=== PATIENT | female | born 1985 | race Caucasian/White ===

== ENCOUNTER 2022-03-08 01:18 | Inpatient (IN) | payer OTHER, SELFPAY ==
--- NOTE | ~2022-03-08 | CT_ITS ---
EXAMINATION: CT ABDOMEN AND PELVIS WITHOUT CONTRAST CLINICAL INFORMATION: Elevated LFTs, lipase, abdominal pain, vomiting COMPARISON: None TECHNIQUE: Multidetector volumetric imaging was performed from the superior aspect of the liver through the pubic symphysis. Sagittal and coronal reformatted images were obtained on the technologist's workstation. This CT examination was performed using dose optimization techniques as appropriate, variously including the following: *Automated exposure control *Adjustment of mA and/or kV according to patient size (this includes techniques or standardized protocols for targeted exams where dose is matched to indication/reason for exam; i.e. extremities or head) *Use of iterative reconstruction technique DLP: 461 mGy-cm FINDINGS: LUNG BASES: The visualized lung bases are unremarkable. LIVER, GALLBLADDER, AND BILIARY TREE: The liver is normal in size, shape, and attenuation. No focal hepatic lesion or significant biliary ductal dilatation is identified. The gallbladder is contracted and contains multiple gallstones. Tiny stones are suspected in the distal common bile duct. PANCREAS: No significant peripancreatic stranding or focal fluid collection. SPLEEN: Unremarkable. ADRENAL GLANDS: Unremarkable. KIDNEYS AND URETERS: The kidneys are normal in size, shape, and attenuation. No hydronephrosis, hydroureter, or calculi seen. No perinephric stranding. BLADDER: Unremarkable. GASTROINTESTINAL TRACT: No evidence of bowel obstruction. Colon is diffusely collapsed which limits evaluation for wall thickening. The appendix is unremarkable. No free fluid or free air is seen. ABDOMINAL WALL: No significant hernia is appreciated. LYMPH NODES: No lymphadenopathy is seen, though assessment is limited in the absence of intravenous contrast. VASCULAR: Unremarkable. PELVIC VISCERA: IUD is present in the uterus. OSSEOUS STRUCTURES: Mild scattered degenerative endplate changes in the spine. CT/CT abdomen pelvis wo con IMPRESSION: 1. Cholelithiasis within a contracted gallbladder. Distal choledocholithiasis is also suspected, and this may be further evaluated with MRCP or ERCP. 2. No significant peripancreatic inflammatory change.
--- NOTE | ~2022-03-08 | MR_ITS ---
EXAMINATION: MR ABDOMEN WITHOUT CONTRAST CLINICAL INFORMATION: Abdominal pain. Abnormal liver function tests. COMPARISON: Previous CT of the abdomen and pelvis from earlier the same day TECHNIQUE: MR abdomen is performed without gadolinium contrast. MRCP sequences were also performed. FINDINGS: LUNG BASES: The visualized lung bases are unremarkable. LIVER, GALLBLADDER, AND BILIARY TREE: The liver is normal in size, smooth in contour, and normal in signal. No focal hepatic lesion.. The gallbladder is not well visualized. There is no intra or extrahepatic biliary duct dilatation. The common bile duct is upper normal in size measuring 7 mm. There are low signal filling defects in the distal common bile duct suggestive of small stones. PANCREAS: Unremarkable. SPLEEN: Unremarkable. ADRENAL GLANDS: Unremarkable. KIDNEYS AND URETERS: The kidneys are normal in size and shape. No hydronephrosis. No perinephric stranding. GASTROINTESTINAL TRACT: No bowel obstruction. No ascites or fluid collection. ABDOMINAL WALL: No significant hernia is appreciated. LYMPH NODES: No lymphadenopathy. VASCULAR: Unremarkable. OSSEOUS STRUCTURES: Marrow signal normal. MR/MR MRCP IMPRESSION: Normal caliber intrahepatic extrahepatic bile ducts. Small distal common bile duct stones. Gallbladder not well visualized.
[2022-03-08 01:31] VITALS: BP 106/63; PULSE 71; RESP 26; TEMP 36.4; O2SAT 96; BMI 25.7
[2022-03-08] MEDS: 0.9 % Sodium Chloride 1,000 ML 999 ML IVCONT (01:43)
[2022-03-08] MEDS: ondansetron HCL 4 MG/2 ML VIAL IVPUSH ×3 (01:43→21:05)
[2022-03-08 01:47] LABS: MANUAL DIFF FLAG NO
[2022-03-08 01:48] LABS: Basophils Percent Auto 0.2 % (0-2); Eosinophils Percent Auto 0.1 % (0-4); Hematocrit 45.5 % (37.0-47.0); Hemoglobin 16.3 g/dl (12.0-16.0); Imm Gran Abs Auto 0.07 X10*3/uL (0.00-0.03); Imm Gran Pct Auto 0.5 % (0.0-0.4); Lymphocytes Percent Auto 6.8 % (20-40); Mean Corpuscular HGB Conc 35.8 g/dl (31.0-35.0); Mean Corpuscular Volume 89.2 fL (80.0-98.0); Monocytes Absolute Auto 0.7 X10*3/uL (0.1-1.2); Monocytes Percent Auto 4.5 % (2-11); Neutrophils Absolute Auto 13.3 x10*3/uL (2.0-8.3); Neutrophils Percent Auto 87.9 % (45-73); Platelet Count 285 X10*3/uL (160-400); White Blood Count 15.1 X10*3/uL (4.8-10.8)
--- NOTE | 2022-03-08 01:49 | ED.NAVMDI ---
HPI - Nausea/Vomiting/Diarrhea General Chief complaint: Abdominal Pain Stated complaint: food poisoning? vomiting x6 hours Time Seen by Provider: 03/08/22 01:21 Source: patient Mode of arrival: ambulatory Limitations: no limitations History of Present Illness HPI Narrative: Patient comes to the emergency room complaining of multiple episodes of nausea and vomiting, 1 episode of diarrhea. 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 Today, patient ate plenty [place], shortly after she started feeling nauseous and started vomiting. Patient did not pass out. Patient was hoping that the vomiting would subside by itself but it did not. Patient denies fever or chills, no URI or UTI symptoms, no blood in the vomit/stool. Patient states that she has intermittent abdominal cramping, after vomiting, she has no abdominal pain, patient states that she vomited prior to coming to the main ED and at this time she feels fairly well. However, the nausea started to build up again. Related Data Allergies Allergy/AdvReac Type Severity Reaction Status Date / Time No Known Allergies Allergy Verified 03/08/22 01:36 Review of Systems Review of Systems: Constitutional : No Weight loss, No Fever, No Chills, No Night Sweats, No Fatigue, No Malaise ENT/Mouth : No Hearing loss, No Ear Pain, No Nasal Congestion, No Sinus Pain, No Hoarseness, No sore throat, No Rhinorrhea, No Swallowing Difficulty Eyes: No Eye Pain, No Swelling, No Redness, No Foreign Body, No Discharge, No Vision Changes Cardiovascular : No Chest Pain, No SOB, No Dyspnea on Exertion, No Orthopnea, No Edema, No Palpitations Respiratory : No Cough, No Sputum, No Wheezing, No Smoke Exposure, No Dyspnea Gastrointestinal : Complaining of nausea, vomiting, 1 episode of diarrhea No Constipation, complaining of 1 episode of abdominal cramping, intermittent Genitourinary : no irregular bleeding, No Dysuria, No Urinary Frequency, No Hematuria, No Urinary Incontinence, No Urgency, No Flank Pain, No Urinary Flow Changes, No Hesitancy Musculoskeletal : No joint pain, No Myalgias, No Joint Swelling Skin : No Skin Lesions, No rash Neuro : No Weakness, No Numbness, No Paresthesias, No Loss of Consciousness, No Dizziness, No Headache Psych : No Anxiety/Panic, No Depression, No SI/HI/AH/VH, No Social Issues, Heme/Lymph: No Bruising, No Bleeding,No Lymphadenopathy Endocrine : No Polyuria, No Polydipsia, No Temperature Intolerance [facility] Social History Social History Advance Directives: No Advance Directives Information Provided: Yes Physical Exam Vital Signs: Vital Signs: Last Vital Signs Temp 97.6 F 03/08/22 01:31 Pulse 71 03/08/22 01:31 Resp 26 H 03/08/22 01:31 BP 106/63 03/08/22 01:31 Pulse Ox 96 03/08/22 01:31 O2 Del Method 03/08/22 01:31 BMI result Body Mass Index 25.7 Const: Other: Appearance: Alert. Oriented X3. No acute distress. Eyes: Pupils equal, round and reactive to light. ENT: Pharynx normal. Neck: Normal inspection. Neck supple. No lymph nodes noted. No crepitus CVS: Normal heart rate and rhythm. Pulses normal. Normal S1 and S2 Respiratory: No respiratory distress. Breath sounds normal. No Wheezing. No rales Abdomen: Soft and nontender. No rigidity. No distention. Skin: Skin warm , mildly diaphoretic. Normal skin color. Normal skin turgor. Extremities: No lower extremity edema. No Lacerations. No Rash Neuro: Oriented X 3. No motor deficit. No sensory deficit. Moving all extremities. No slurred speech. CN 2 through 12 grossly intact Psych: calm, cooperative, normal affect Course Course Course Narrative: Patient is receiving IV fluid and Zofran. Follow labs pending. I discussed the labs and CT scan with Dr. Flaherty, patient will be admitted, patient may need ERCP versus MRCP. Patient is receiving IV Zosyn. Lactic acid and blood cultures are pending, at this time, Sepsis not suspected. MDM - Nausea/Vomiting/Diarrhea Lab Data Result diagrams: 03/08/22 01:43 03/08/22 01:43 Labs: Lab Results 03/08/22 03/08/22 Range/Units 01:43 01:43 WBC 15.1 H (4.8-10.8) X10*3/uL RBC 5.10 (4.20-5.50) X10*6/uL Hgb 16.3 H (12.0-16.0) g/dl Hct 45.5 (37.0-47.0) % MCV 89.2 (80.0-98.0) fL MCH 32.0 (27.0-33.0) pg MCHC 35.8 H (31.0-35.0) g/dl RDW 12.0 (11.0-16.0) % Plt Count 285 (160-400) X10*3/uL MPV 10.0 (9.4-12.3) fL Immature Gran % (Auto) 0.5 H (0.0-0.4) % Neut % (Auto) 87.9 H (45-73) % Lymph % (Auto) 6.8 L (20-40) % [place] % (Auto) 4.5 (2-11) % Eos % (Auto) 0.1 (0-4) % Baso % (Auto) 0.2 (0-2) % Lymph # (Auto) 1.0 L (1.2-4.9) X10*3/uL [place] # (Auto) 0.7 (0.1-1.2) X10*3/uL Eos # (Auto) 0.0 (0.0-0.4) X10*3/uL Baso # (Auto) 0.0 (0.0-0.2) X10*3/uL Abs Immat Gran (auto) 0.07 H (0.00-0.03) X10*3/uL Absolute Neuts (auto) 13.3 H (2.0-8.3) x10*3/uL Absolute Nucleated RBC 0.000 (0.0-0.012) X10*3/uL Nucleated RBC % (auto) 0.0 (0.0-0.2) /100WBC Sodium 137 (135-145) mmol/L Potassium 3.7 (3.3-5.1) mmol/L Chloride 105 (96-108) mmol/L Carbon Dioxide 14 L (22-29) mmol/L Anion Gap 22 H (12-20) BUN 14 (9-16) mg/dL Creatinine 0.92 (0.5-1.4) mg/dL Estim Creat Clear Calc 75.0 Estimated GFR > 60 Random Glucose 141 H (60-115) mg/dL Calcium 9.9 (8.4-10.2) mg/dL Total Bilirubin 1.4 H (0.0-1.0) mg/dL Direct Bilirubin 0.5 (0.0-0.5) mg/dL AST 304 H (5-31) U/L ALT 231 H (0-31) U/L Alkaline Phosphatase 84 (39-117) U/L Total Protein 8.3 H (6.5-8.0) g/dL Albumin 5.0 (3.5-5.0) g/dL Lipase 140 H (8-78) U/L Beta HCG, Quant < 2 mIU/mL Imaging Data CT scan - abdomen: Radiologist's impression: FINDINGS: LUNG BASES: The visualized lung bases are unremarkable.? LIVER, GALLBLADDER, AND BILIARY TREE: The liver is normal in size, shape, and attenuation. No focal hepatic lesion or significant biliary ductal dilatation is identified. The gallbladder is contracted and contains multiple gallstones. Tiny stones are suspected in the distal common bile duct. PANCREAS: No significant peripancreatic stranding or focal fluid collection.? SPLEEN: Unremarkable.? ADRENAL GLANDS: Unremarkable.? KIDNEYS AND URETERS: The kidneys are normal in size, shape, and attenuation. No hydronephrosis, hydroureter, or calculi seen. No perinephric stranding. BLADDER: Unremarkable.? GASTROINTESTINAL TRACT: No evidence of bowel obstruction. Colon is diffusely collapsed which limits evaluation for wall thickening. The appendix is unremarkable. No free fluid or free air is seen. ABDOMINAL WALL: No significant hernia is appreciated.? LYMPH NODES: No lymphadenopathy is seen, though assessment is limited in the absence of intravenous contrast. VASCULAR: Unremarkable. PELVIC VISCERA: IUD is present in the uterus.? OSSEOUS STRUCTURES: Mild scattered degenerative endplate changes in the spine.? CT/CT abdomen pelvis wo con IMPRESSION: 1.? Cholelithiasis within a contracted gallbladder. Distal choledocholithiasis is also suspected, and this may be further evaluated with MRCP or ERCP. 2.? No significant peripancreatic inflammatory change. ? Discharge Plan Discharge Clinical Impression: Nausea & vomiting, Cholelithiasis Patient Disposition: Admitted As Inpatient
[2022-03-08 02:09] LABS: Alanine Aminotransferase 231 U/L (0-31); Alkaline Phosphatase 84 U/L (39-117); Anion Gap 22 (12-20); Aspartate Amino Transferase 304 U/L (5-31); Bilirubin Direct 0.5 mg/dL (0.0-0.5); Bilirubin Total 1.4 mg/dL (0.0-1.0); Blood Urea Nitrogen 14 mg/dL (9-16); Calcium 9.9 mg/dL (8.4-10.2); Carbon Dioxide 14 mmol/L (22-29); Chloride 105 mmol/L (96-108); Estimated Glomerular Filt Rate > 60; Glucose Random 141 mg/dL (60-115); Lipase 140 U/L (8-78); Potassium 3.7 mmol/L (3.3-5.1); Sodium 137 mmol/L (135-145); Total Protein 8.3 g/dL (6.5-8.0)
[2022-03-08 02:39] LABS: HCG Quantitative < 2 mIU/mL
[2022-03-08] MEDS: Metoclopramide HCl 10 MG/2 ML VIAL IVPUSH (03:26)
[2022-03-08] MEDS: Ketorolac Tromethamine 30 MG/ML VIAL IVPUSH (03:28)
--- NOTE | 2022-03-08 03:54 | PC.NURSE ---
Assumed care of the pt. at approximately 1:30 after triaged from the waiting room. Pt. found to be uncomfortable and c/o pain in the abdomen as well as nausea. Pt. medicated as per the MAR. Pt. also c/o of high levels of anxiety relating to her abd. pain. Pt. now resting comfortably. Continue to monitor.
[2022-03-08] MEDS: Piperacillin Sodium/Tazobactam 3.375 GM in 0.9 % Sodium Chloride 50 ML IV (04:54)
[2022-03-08 04:55] LABS: Basophils Percent Auto 0.1 % (0-2); Hematocrit 40.4 % (37.0-47.0); Hemoglobin 14.6 g/dl (12.0-16.0); Imm Gran Abs Auto 0.05 X10*3/uL (0.00-0.03); Imm Gran Pct Auto 0.4 % (0.0-0.4); Lymphocytes Absolute Auto 0.6 X10*3/uL (1.2-4.9); Lymphocytes Percent Auto 4.8 % (20-40); MANUAL DIFF FLAG SCAN; Mean Corpuscular HGB Conc 36.1 g/dl (31.0-35.0); Mean Corpuscular Hemoglobin 32.4 pg (27.0-33.0); Mean Corpuscular Volume 89.8 fL (80.0-98.0); Monocytes Absolute Auto 0.3 X10*3/uL (0.1-1.2); Monocytes Percent Auto 2.3 % (2-11); Neutrophils Absolute Auto 11.9 x10*3/uL (2.0-8.3); Neutrophils Percent Auto 92.4 % (45-73); Platelet Count 247 X10*3/uL (160-400); SCAN SMEAR FLAG 1; White Blood Count 12.9 X10*3/uL (4.8-10.8)
[2022-03-08] MEDS: Midazolam HCl/PF 2 MG/2 ML VIAL IVPUSH (04:55)
[2022-03-08 05:10] LABS: COVID-19 Test Negative (Negative)
[2022-03-08 05:12] LABS: Lactic Acid 2.1 mmol/L (0.5-2.0); SLIDE REVIEW VERIFIED
[2022-03-08] MEDS: 0.9 % Sodium Chloride 1,000 ML 100 ML IVCONT ×2 (05:51→15:52)
[2022-03-08 06:54] LABS: Reflex Lactate? Lactic Acid Added
[2022-03-08 07:47] VITALS: BP 107/65; PULSE 53; RESP 20; O2SAT 99
[2022-03-08 07:55] LABS: Appearance Urine CLEAR; Color Urine YELLOW; Glucose Urine UA NEG (NEG); Leukocyte Esterase Urine NEG (NEG); Nitrite Urine NEG (NEG); PH 6.5 (5.0-8.0); Specific Gravity - Urine 1.015 (1.005-1.025); UACC Culture Trigger NO; Urine Blood 1+ (NEG); Urine Ketones 40 MG/DL (NEG); Urine Protein 1+ MG/DL (NEG-TRACE)
[2022-03-08 08:07] LABS: Amorphous Sediment Urine 1+ /LPF
[2022-03-08 08:08] LABS: Bacteria Urine TRACE /LPF; Squamous Epithelial Cell Urine 1+ /LPF; WBC Urine 0-2 /HPF (0-4)
[2022-03-08 08:09] LABS: Amphetamine Screen Urine Not Detected (Not Detect); Barbiturates, Urine Not Detected (Not Detect); Benzodiazepines Screen Urine POSITIVE (Not Detect); Cannabinoid Screen Urine POSITIVE (Not Detect); Cocaine Screen Urine Not Detected (Not Detect); Fentanyl, urine Not Detected (Not Detect); Opiate Screen Urine Not Detected (Not Detect); Phencyclidine Screen Urine Not Detected (Not Detect)
--- NOTE | 2022-03-08 08:41 | PHA.MEDREC ---
Pharmacy Consult ? Medication Reconciliation Pharmacy has completed the medication reconciliation.Spoke with patient in the ED
--- NOTE | 2022-03-08 09:18 | PM.GICN ---
History of Present Illness Data of Consult Service Date: 03/08/22 Requesting physician: Kristine Flaherty Primary Care Provider: Unknown Physician HPI Reason for consult: gallstones 37 yr old f with hx of chronic constipation who I am seeing for assessment for abn LFT and possible CBD stones Patient had sudden onset severe pain 10/10 early this morning which was initially coming and going but then became more constant. Located in RUQ and radiating into the epigastrium and into the back. No relieving or exacerbating factors, not had this type of severe pain before. she did have nausea with bilious emesis, with chills, but no fever. She has hx of syncopal epsiodes for which she is getting further work up by cardiology. Not drank alcohol for 1 yr, does use THC. ex vaper. Review of Systems Review of Systems: Constitutional : No Weight loss, No Fever,, No Night Sweats, No Fatigue, No Malaise ENT/Mouth : No Hearing loss, No Ear Pain, No Nasal Congestion, No Sinus Pain, No Hoarseness, No sore throat, No Rhinorrhea, No Swallowing Difficulty Eyes: No Eye Pain, No Swelling, No Redness, No Foreign Body, No Discharge, No Vision Changes Cardiovascular : No Chest Pain, No SOB, No Dyspnea on Exertion, No Orthopnea, No Edema, No Palpitations Respiratory : No Cough, No Sputum, No Wheezing, No Smoke Exposure, No Dyspnea Gastrointestinal : see above Genitourinary : no irregular bleeding, No Dysuria, No Urinary Frequency, No Hematuria, No Urinary Incontinence, No Urgency, No Flank Pain, No Urinary Flow Changes, No Hesitancy Musculoskeletal : No joint pain, No Myalgias, No Joint Swelling Skin : No Skin Lesions, No rash Neuro : No Weakness, No Numbness, No Paresthesias, No Loss of Consciousness, No Dizziness, No Headache Psych : No Anxiety/Panic, No Depression, No SI/HI/AH/VH, No Social Issues, Heme/Lymph: No Bruising, No Bleeding,No Lymphadenopathy Endocrine : No Polyuria, No Polydipsia, No Temperature Intolerance [facility] Family History Pertinent family history: No FH of gallstones Social History Social History Advance Directives: No Advance Directives Information Provided: Yes Meds Allergies Allergy/AdvReac Type Severity Reaction Status Date / Time No Known Allergies Allergy Verified 03/08/22 01:36 Active Medications: Current Medications Sodium Chloride (Ns) 1,000 mls @ 100 mls/hr IVCONT .Q10H [facility] Last Infusion: 03/08/22 06:38 Dose: Infused Morphine Sulfate (Morphine Sulfate 4 Mg/Ml Cartridge) 4 mg IVPUSH Q4H PRN; Protocol PRN Reason: Pain, Severe (Pain Scale 7-10) Ondansetron HCl (Ondansetron Hcl 4 Mg/2 Ml Vial) 4 mg IVPUSH Q6H PRN PRN Reason: Nausea and Vomiting Last Admin: 03/08/22 07:45 Dose: 4 mg Sodium Chloride (0.9 % Sodium Chloride Flush 3 Ml Syringe) 3 ml IVFLUSH QSHIFT [facility] Last Admin: 03/08/22 07:46 Dose: Not Given Home Medications Medication Instructions Recorded Confirmed Last Taken Type multivitamin 1 tab PO DAILY 03/08/22 03/08/22 03/07/22 History Physical Exam Vital Signs: Vital Signs: Last Vital Signs Temp 97.6 F 03/08/22 01:31 Pulse 53 03/08/22 07:47 Resp 20 03/08/22 07:47 BP 107/65 03/08/22 07:47 Pulse Ox 99 03/08/22 07:47 O2 Del Method 03/08/22 07:47 BMI result Body Mass Index 25.7 Const: Other: Appearance: Alert. Oriented X3. No acute distress. Eyes: Pupils equal, round and reactive to light. ENT: Pharynx normal. Neck: Normal inspection. Neck supple. No lymph nodes noted. No crepitus CVS: Normal heart rate and rhythm. Pulses normal. Normal S1 and S2 Respiratory: No respiratory distress. Breath sounds normal. No Wheezing. No rales Abdomen: Soft and nontender. No rigidity. No distention. Skin: Skin warm , mildly diaphoretic. Normal skin color. Normal skin turgor. Extremities: No lower extremity edema. No Lacerations. No Rash Neuro: Oriented X 3. No motor deficit. No sensory deficit. Moving all extremities. No slurred speech. CN 2 through 12 grossly intact Psych: calm, cooperative, normal affect Results Labs CBC & Chem 7: 03/08/22 04:45 03/08/22 01:43 Labs: Short CBC 03/08/22 03/08/22 Range/Units 01:43 04:45 WBC 15.1 H 12.9 H (4.8-10.8) X10*3/uL Hgb 16.3 H 14.6 (12.0-16.0) g/dl Hct 45.5 40.4 (37.0-47.0) % Plt Count 285 247 (160-400) X10*3/uL BMP 03/08/22 01:43 Sodium 137 Potassium 3.7 Chloride 105 Carbon Dioxide 14 L BUN 14 Creatinine 0.92 Calcium 9.9 Liver Function 03/08/22 Range/Units 01:43 Total Bilirubin 1.4 H (0.0-1.0) mg/dL Direct Bilirubin 0.5 (0.0-0.5) mg/dL AST 304 H (5-31) U/L ALT 231 H (0-31) U/L Alkaline Phosphatase 84 (39-117) U/L Albumin 5.0 (3.5-5.0) g/dL Urine 03/08/22 Range/Units 07:40 Urine Color YELLOW Urine Appearance CLEAR Urine pH 6.5 (5.0-8.0) Ur Specific [place] 1.015 (1.005-1.025) Urine Protein 1+ H (NEG-TRACE) MG/DL Urine Glucose (UA) NEG (NEG) MG/DL Imaging CT scan - abdomen: Attestation: I personally reviewed and interpreted this imaging study as follows: (gallstones, few punctate calcification in distal CBD) Assessment and Plan (1) Cholelithiasis: Status: Acute (2) Nausea & vomiting: Status: Acute Plan 1/ symptomatic cholelithiasis, possible choledocholithiasis PLAN: 1/ trend LFT 2/ MRCP for further assessment 3/ depending on LFt data and MRCP we can decide on ERCP or not, she lives in [facility] and not too keen to stay too long in the area, she was just visiting her mum here Procedures Date of Service Date of Service: 03/08/22
[2022-03-08 13:54] LABS: Thyroid Stimulating Hormone 1.55 uIU/mL (0.32-4.0)
--- NOTE | 2022-03-08 14:56 | MHC.CM.PN ---
PT REPORTS SHE LIVES WITH HER AND IS INDEPENDENT WITH CARE PT DENIES USING DME OR HAVING HOME SERVICES PT REPORTS HER PCP IS PEDRO VELASCO AT [facility] PT REPORTS SHE IS VACCINATED AGAINST COVID PT REPORTS HER IS HER HCP CURRENT DC PLAN IS HOME WITH NO SERVICES HER WILL TRANSPORT
[2022-03-08 15:39] VITALS: BP 102/53; PULSE 54; RESP 18; TEMP 36.5; O2SAT 97
[2022-03-08] MEDS: 0.9 % Sodium Chloride Flush 3 ML SYRINGE IVFLUSH ×2 (15:53→21:04)
--- NOTE | 2022-03-08 17:33 | PM.HPGS ---
History of Present Illness History of Present Illness Date of Service: 03/08/22 Chief complaint: abdo pain Narrative: Allie Rothman is a 37 year old female who presented last night with abdominal pain to the ER and was noted to have elevated Lfts and elevated wbc. She was admitted and kept npo and gi consult done. recommended mrcp which was done which showed not much ductal dilatation but did see distal CBD stones present. pt lives in [facility] and only here visiting and would consider going to [facility] for her surgery. no signs of sepsis. she didnt know she had gb symptoms Review of Systems Review of Systems: Yes all other systems are reviewed and are negative COUNTS INCLUDE 234 BEDS AT THE [facility] Social History Social History Household Members: Spouse Housing: House Do you presently have visiting nurse or other home services: No Patient Tobacco Use Status: Never used Tobacco service: No Current occupational status: employed Meds Allergies Allergy/AdvReac Type Severity Reaction Status Date / Time No Known Allergies Allergy Verified 03/08/22 01:36 Active Medications: Current Medications Sodium Chloride (Ns) 1,000 mls @ 100 mls/hr IVCONT .Q10H [facility] Last Admin: 03/08/22 15:52 Dose: 100 mls/hr Metoclopramide HCl (Metoclopramide Hcl 10 Mg/2 Ml Vial) 10 mg IVPUSH Q6H PRN PRN Reason: Nausea and Vomiting Morphine Sulfate (Morphine Sulfate 4 Mg/Ml Cartridge) 4 mg IVPUSH Q4H PRN; Protocol PRN Reason: Pain, Severe (Pain Scale 7-10) Ondansetron HCl (Ondansetron Hcl 4 Mg/2 Ml Vial) 4 mg IVPUSH Q4H PRN PRN Reason: nausea Sodium Chloride (0.9 % Sodium Chloride Flush 3 Ml Syringe) 3 ml IVFLUSH QSHIFT [facility] Last Admin: 03/08/22 15:53 Dose: 3 ml Home Medications Medication Instructions Recorded Confirmed Last Taken Type multivitamin 1 tab PO DAILY 03/08/22 03/08/22 03/07/22 History Physical Exam Vital Signs: Vital Signs: Last Vital Signs Temp 97.7 F 03/08/22 15:39 Pulse 54 03/08/22 15:39 Resp 18 03/08/22 15:39 BP 102/53 L 03/08/22 15:39 Pulse Ox 97 03/08/22 15:39 O2 Del Method 03/08/22 15:39 BMI result Body Mass Index 25.7 Const: General: cooperative, healthy appearing, comfortable and no acute distress Orientation/consciousness: patient oriented x3 Resp: Effort & Inspection: normal respiratory effort Auscultation: clear to auscultation bilaterally Cardio: Rate: regular rate Rhythm: regular rhythm GI: Other: soft nontender nondistended normal bowel signs Skin: Other: nonicteric Neuro: General: patient oriented x3 Results Results Labs: Short CBC 03/08/22 03/08/22 Range/Units 01:43 04:45 WBC 15.1 H 12.9 H (4.8-10.8) X10*3/uL Hgb 16.3 H 14.6 (12.0-16.0) g/dl Hct 45.5 40.4 (37.0-47.0) % Plt Count 285 247 (160-400) X10*3/uL BMP 03/08/22 01:43 Sodium 137 Potassium 3.7 Chloride 105 Carbon Dioxide 14 L BUN 14 Creatinine 0.92 Calcium 9.9 Liver Function 03/08/22 Range/Units 01:43 Total Bilirubin 1.4 H (0.0-1.0) mg/dL Direct Bilirubin 0.5 (0.0-0.5) mg/dL AST 304 H (5-31) U/L ALT 231 H (0-31) U/L Alkaline Phosphatase 84 (39-117) U/L Albumin 5.0 (3.5-5.0) g/dL Urine 03/08/22 Range/Units 07:40 Urine Color YELLOW Urine Appearance CLEAR Urine pH 6.5 (5.0-8.0) Ur Specific [place] 1.015 (1.005-1.025) Urine Protein 1+ H (NEG-TRACE) MG/DL Urine Glucose (UA) NEG (NEG) MG/DL Assessment and Plan (1) Cholelithiasis: Status: Acute Plan 37 year old female with cholelithiasis and ?CBD stone - mrcp showed stones in cbd but now pt feeling much better no pain and hungry. ? passed a stone. will allow clear liquids and npo after midnight and repeat labs in am and then if still high consider ercp with gi and then can decide when to do lap jose a. she and understand and agree with the plan Quality Stroke Does the patient have a stroke diagnosis?: No VTE Prior VTE?: No VTE Risk Level:: Surgical - low VTE Device Contraindication: N/A - Device Ordered VTE Drug Contraindication: Treatment Not Indicated Procedures Date of Service Date of Service: 03/08/22
[2022-03-08 19:31] VITALS: BP 95/50; PULSE 61; RESP 18; TEMP 36.6; O2SAT 98
[2022-03-09] VITALS: BP 96/52; PULSE 56; RESP 18; TEMP 36.7; O2SAT 97
[2022-03-09] MEDS: 0.9 % Sodium Chloride 1,000 ML 100 ML IVCONT (02:46)
[2022-03-09 04:00] VITALS: BP 93/52; PULSE 56; RESP 18; TEMP 37.1; O2SAT 99
[2022-03-09 06:14] LABS: MANUAL DIFF FLAG NO
[2022-03-09 06:43] LABS: Basophils Percent Auto 0.2 % (0-2); Eosinophils Absolute Auto 0.1 X10*3/uL (0.0-0.4); Eosinophils Percent Auto 0.7 % (0-4); Hemoglobin 11.8 g/dl (12.0-16.0); Imm Gran Abs Auto 0.02 X10*3/uL (0.00-0.03); Imm Gran Pct Auto 0.2 % (0.0-0.4); Lymphocytes Absolute Auto 2.1 X10*3/uL (1.2-4.9); Lymphocytes Percent Auto 23.8 % (20-40); Mean Corpuscular HGB Conc 34.7 g/dl (31.0-35.0); Mean Corpuscular Hemoglobin 32.2 pg (27.0-33.0); Mean Corpuscular Volume 92.9 fL (80.0-98.0); Mean Platelet Volume 10.6 fL (9.4-12.3); Monocytes Absolute Auto 0.8 X10*3/uL (0.1-1.2); Monocytes Percent Auto 8.6 % (2-11); Neutrophils Absolute Auto 5.9 x10*3/uL (2.0-8.3); Neutrophils Percent Auto 66.5 % (45-73); Platelet Count 195 X10*3/uL (160-400); Red Blood Count 3.66 X10*6/uL (4.20-5.50); White Blood Count 8.9 X10*3/uL (4.8-10.8)
[2022-03-09 07:30] LABS: Alanine Aminotransferase 80 U/L (0-31); Albumin Level 3.4 g/dL (3.5-5.0); Alkaline Phosphatase 49 U/L (39-117); Anion Gap 9 (12-20); Aspartate Amino Transferase 33 U/L (5-31); Bilirubin Total 0.9 mg/dL (0.0-1.0); Blood Urea Nitrogen 9 mg/dL (9-16); Calcium 7.7 mg/dL (8.4-10.2); Carbon Dioxide 20 mmol/L (22-29); Chloride 115 mmol/L (96-108); Creatinine Clr Calc Pharmacy 87.3; Estimated Glomerular Filt Rate > 60; Glucose Random 79 mg/dL (60-115); Potassium 3.9 mmol/L (3.3-5.1); Sodium 140 mmol/L (135-145); Total Protein 5.2 g/dL (6.5-8.0)
[2022-03-09 07:38] VITALS: BP 101/60; PULSE 62; RESP 18; TEMP 36.8; O2SAT 94
--- NOTE | 2022-03-09 09:58 | P.PNGS_ITS ---
Subjective Subjective Date of Service: 03/09/22 <YOUSIF French - Last Filed: 03/09/22 10:02> 03/09/22 <Felipe Joseph MD - Last Filed: 03/09/22 11:38> Interval history: Patient reports no abdominal pain currently. No N/V, has not received any nausea meds since last evening. Wants to try to eat. <YOUSIF French - Last Filed: 03/09/22 10:02> Physical Exam Vital Signs: Vital Signs: Last Vital Signs Temp 98.2 F 03/09/22 07:38 Pulse 62 03/09/22 07:38 Resp 18 03/09/22 07:38 BP 101/60 03/09/22 07:38 Pulse Ox 94 03/09/22 07:38 O2 Del Method 03/09/22 07:38 BMI result Body Mass Index 25.7 <YOUSIF French - Last Filed: 03/09/22 10:02> Const: General: cooperative, comfortable and no acute distress <YOUSIF French - Last Filed: 03/09/22 10:02> Orientation/consciousness: patient oriented x3 <YOUSIF French - Last Filed: 03/09/22 10:02> GI: Other: soft, nontender, nondistended <YOUSIF French - Last Filed: 03/09/22 10:02> Neuro: General: patient oriented x3 <YOUSIF French - Last Filed: 03/09/22 10:02> Objective Data Active Medications Sodium Chloride (Ns) 1,000 mls @ 100 mls/hr IVCONT .Q10H PRAVIN Last Admin: 03/09/22 02:46 Dose: 100 mls/hr Documented By: MARLENY Metoclopramide HCl (Metoclopramide Hcl 10 Mg/2 Ml Vial) 10 mg IVPUSH Q6H PRN PRN Reason: Nausea and Vomiting Morphine Sulfate (Morphine Sulfate 4 Mg/Ml Cartridge) 4 mg IVPUSH Q4H PRN; Protocol PRN Reason: Pain, Severe (Pain Scale 7-10) Ondansetron HCl (Ondansetron Hcl 4 Mg/2 Ml Vial) 4 mg IVPUSH Q4H PRN PRN Reason: nausea Last Admin: 03/08/22 21:05 Dose: 4 mg Documented By: MARLENY Sodium Chloride (0.9 % Sodium Chloride Flush 3 Ml Syringe) 3 ml IVFLUSH QSHIFT PRAVIN Last Admin: 03/09/22 08:49 Dose: Not Given Documented By: LOUIS Non-Admin Reason: IV Running <YOUSIF French - Last Filed: 03/09/22 10:02> Labs CBC & Chem 7: : 03/09/22 05:28 03/09/22 05:28 <YOUSIF French - Last Filed: 03/09/22 10:02> Labs: Laboratory Results - last 24 hr 03/08/22 03/09/22 03/09/22 01:43 05:28 05:28 MCV 92.9 MCH 32.2 MCHC 34.7 RDW 13.0 Plt Count 195 MPV 10.6 Immature Gran % (Auto) 0.2 Neut % (Auto) 66.5 Lymph % (Auto) 23.8 [place] % (Auto) 8.6 Eos % (Auto) 0.7 Baso % (Auto) 0.2 Lymph # (Auto) 2.1 Hudson # (Auto) 0.8 Eos # (Auto) 0.1 Baso # (Auto) 0.0 Abs Immat Gran (auto) 0.02 Absolute Neuts (auto) 5.9 Absolute Nucleated RBC 0.000 Nucleated RBC % (auto) 0.0 Anion Gap 9 L Estim Creat Clear Calc 87.3 Estimated GFR > 60 Random Glucose 79 Calcium 7.7 L D Total Bilirubin 0.9 AST 33 H D ALT 80 H Alkaline Phosphatase 49 D Total Protein 5.2 L D Albumin 3.4 L D TSH 1.55 <YOUSIF French - Last Filed: 03/09/22 10:02> Microbiology Microbiology Results: Microbiology 03/08/22 04:45 Blood Culture - Preliminary Blood - Venous No growth after 24 hours. 03/08/22 04:45 Blood Culture - Preliminary Blood - Venous No growth after 24 hours. <YOUSIF French - Last Filed: 03/09/22 10:02> Procedures Date of Service Date of Service: 03/09/22 <YOUSIF French - Last Filed: 03/09/22 10:02> Progress Note: A&P Assessment and plan (1) Cholelithiasis: Status: Acute <YOUSIF French - Last Filed: 03/09/22 10:02> Assessment and Plan: Pt with resolution of pain and improvement in LFTs, WBC. Discussed with Dr. Jackson- no plans for ERCP today; appreciate GI involvement Trial of regular diet If tolerated, can initiate discharge planning; pt can follow up as outpatient with a surgeon closer to her home for discussion of outpatient cholecystectomy Discussed with Dr. Joseph <YOUSIF French - Last Filed: 03/09/22 10:02> Assessment and Plan: She feels much better Denies any abdominal pain No fever Abdomen soft, nontender, no guarding rebound, no Casillas sign LFTs back to normal Discussed with GI - no ERCP planned because of normalization of LFTs Restart diet If patient tolerates, she wants to be discharged - rest of treatment will be at [facility] where she resides seen and examined independently - agree with YOUSIF Schulz <Felipe Joseph MD - Last Filed: 03/09/22 11:38> Time Spent With Patient Time: Total time spent is greater than 50% in coordination of care (as documented) at patient's floor/unit and/or counseling patient: <YOUSIF French - Last Filed: 03/09/22 10:02> Quality Stroke Does the patient have a stroke diagnosis?: No <YOUSIF French - Last Filed: 03/09/22 10:02> VTE Prior VTE?: No <YOUSIF French - Last Filed: 03/09/22 10:02> VTE Risk Level:: Surgical - low <YOUSIF French - Last Filed: 03/09/22 10:02> VTE Device Contraindication: N/A - Device Ordered <YOUSIF French - Last Filed: 03/09/22 10:02> VTE Drug Contraindication: Treatment Not Indicated <YOUSIF French - Last Filed: 03/09/22 10:02>
--- NOTE | 2022-03-09 11:24 | PM.DS ---
DS: Providers Provider Date of Service: 03/09/22 Date of admission: 03/08/22 04:09 Date of discharge: 03/09/22 Primary care physician: Unknown Physician Consults: 03/08/22 04:12 Consult to Gastroenterology Routine Consulting Provider: Clark Jackson Reason for consultation: choledocholithiasis Has provider been notified: No DS: Diagnosis Discharge Diagnosis (1) Cholelithiasis: Status: Acute DS: Summary Hospital Course Hospital Course: 37 year old female without significant medical history who presented to the ED on 03/08/2022 complaining of abdominal pain. She was noted to have elevated LFTs and elevated WBC. She was admitted to the surgical service, and kept NPO. GI consult recommended MRCP which showed not much ductal dilatation but did see distal CBD stones present. After MRCP, pt's pain improved and she felt hungry. On HD1 her WBC normalized and LFTs improved. She was allowed a trial of regular diet which she tolerated. Pt was able to be discharged on HD1 tolerating her diet and with abdominal pain resolved. She will plan to follow up with a surgeon closer to her home near [facility], for possible discussion of cholecystectomy. Time Spent with Patient Time attestation: Total time spent providing and/or coordinating discharge services: Discharge coordination time: Less than 30 minutes Quality: Safe Use of Opioids Does Pt have an Active Cancer Diagnosis on the Problem List?: No Quality: Stroke Does the patient have a stroke diagnosis?: No Physical Exam Vital Signs: Vital Signs: Last Vital Signs Temp 98.2 F 03/09/22 07:38 Pulse 62 03/09/22 07:38 Resp 18 03/09/22 07:38 BP 101/60 03/09/22 07:38 Pulse Ox 94 03/09/22 07:38 O2 Del Method 03/09/22 07:38 BMI result Body Mass Index 25.7 DS: Data Data Completed and Pending Labs on day of discharge: Laboratory Results - last 24 hr 03/08/22 03/09/22 03/09/22 01:43 05:28 05:28 WBC 8.9 RBC 3.66 L Hgb 11.8 L Hct 34.0 L MCV 92.9 MCH 32.2 MCHC 34.7 RDW 13.0 Plt Count 195 MPV 10.6 Immature Gran % (Auto) 0.2 Neut % (Auto) 66.5 Lymph % (Auto) 23.8 [place] % (Auto) 8.6 Eos % (Auto) 0.7 Baso % (Auto) 0.2 Lymph # (Auto) 2.1 [place] # (Auto) 0.8 Eos # (Auto) 0.1 Baso # (Auto) 0.0 Abs Immat Gran (auto) 0.02 Absolute Neuts (auto) 5.9 Absolute Nucleated RBC 0.000 Nucleated RBC % (auto) 0.0 Sodium 140 Potassium 3.9 Chloride 115 H Carbon Dioxide 20 L Anion Gap 9 L BUN 9 Creatinine 0.79 Estim Creat Clear Calc 87.3 Estimated GFR > 60 Random Glucose 79 Calcium 7.7 L D Total Bilirubin 0.9 AST 33 H D ALT 80 H Alkaline Phosphatase 49 D Total Protein 5.2 L D Albumin 3.4 L D TSH 1.55 Preliminary micro results at discharge 03/08/22 04:45 Blood Culture - Preliminary Blood - Venous No growth after 24 hours. 03/08/22 04:45 Blood Culture - Preliminary Blood - Venous No growth after 24 hours. Discharge Plan Discharge Patient Disposition: Home, Self-Care Discharge Diagnosis: choledocholithiasis Referrals: Physician,Unknown J [Primary Care Provider] - 1 Week Discharge Medications: New ondansetron 4 mg tablet,disintegrating 4 mg PO Q8H Qty: 20 0RF Continued multivitamin Tablet 1 tab PO DAILY Discharge Orders: Discharge Order (Routine); Ordered 03/09/22 Ordered By: Rosalba Schulz Activity on Discharge: As tolerated Stand Alone Forms: Patient Portal Discharge page Care Plan Goals: resolution of abdominal pain, management of gallstones Health Concerns: abdominal pain, gallstones Plan of Treatment: Follow up with surgery near your home for discussion of possible cholecystectomy to prevent further issues with gallstones. Assessment: choledocholithiasis, stone likely passed without intervention
[2022-03-09 11:35] VITALS: BP 101/59; PULSE 55; RESP 18; TEMP 36.8; O2SAT 96
--- NOTE | 2022-03-09 12:56 | MHC.CM.PN ---
PATIENT IS DC HOME - SELF CARE RN AWARE OF PLAN.
== END 2022-03-09 13:24 | disposition home or self-care (01) ==
LOC: HO.ED 04:09 → HO.EDOVER 04:51 → HO.S3 10:52
PROVIDERS: Internal Medicine Gastroenterology; Admitting Provider Surgery; Emergency Provider Emergency Medicine; PCP Internal Medicine; Visit Provider Surgery
DX: K80.20 Calculus of gallbladder without cholecystitis without obstruction (principal); Z20.822 Contact with and (suspected) exposure to COVID-19; Z79.899 Other long term (current) drug therapy
CPT/HCPCS: 36415; 74176; 74181; 80048; 80053; 80076; 80307; 81001; 83605; 83690; 84443; 84702; 85025; 87040; 87635; 96361; 96365; 96375; 99218; 99285; J1885; J2250; J2405; J2543; J2765

== ENCOUNTER 2022-08-15 23:31 | Inpatient (IN) | payer OTHER, SELFPAY ==
[2022-08-15 23:38] VITALS: BP 110/76; PULSE 70; RESP 16; TEMP 36.7; O2SAT 99; BMI 24.7
[2022-08-16 00:02] LABS: Basophils Percent Auto 0.3 % (0-2); Eosinophils Absolute Auto 0.1 X10*3/uL (0.0-0.4); Eosinophils Percent Auto 0.6 % (0-4); Hematocrit 41.1 % (37.0-47.0); Hemoglobin 14.3 g/dl (12.0-16.0); Imm Gran Abs Auto 0.06 X10*3/uL (0.00-0.03); Imm Gran Pct Auto 0.6 % (0.0-0.4); Lymphocytes Absolute Auto 2.1 X10*3/uL (1.2-4.9); Lymphocytes Percent Auto 19.8 % (20-40); MANUAL DIFF FLAG NO; Mean Corpuscular HGB Conc 34.8 g/dl (31.0-35.0); Mean Corpuscular Hemoglobin 31.9 pg (27.0-33.0); Mean Corpuscular Volume 91.7 fL (80.0-98.0); Monocytes Absolute Auto 0.8 X10*3/uL (0.1-1.2); Monocytes Percent Auto 7.1 % (2-11); Neutrophils Absolute Auto 7.5 x10*3/uL (2.0-8.3); Neutrophils Percent Auto 71.6 % (45-73); Platelet Count 303 X10*3/uL (160-400); Red Blood Count 4.48 X10*6/uL (4.20-5.50); White Blood Count 10.5 X10*3/uL (4.8-10.8)
--- NOTE | 2022-08-16 00:06 | ED.ABDPAIN ---
HPI - Abdominal Pain General Chief Complaint: Nausea/Vomiting/Diarrhea Stated Complaint: ? gall stone attack Time Seen by Provider: 08/16/22 00:01 Source: patient and family (spouse) Mode of arrival: ambulatory Limitations: no limitations History of Present Illness HPI narrative: 37-year-old female came in for evaluation of right upper quadrant abdominal pain. Severe right upper quadrant abdominal pain 10/10 started 3-4 hours ago pain is severe radiating to the right flank area, patient had similar pain in the past due to CBD stone impaction, patient status post cholecystectomy at [facility] a week ago, pain has been constant with no relieving factor, no aggravating factor. patient lives in the [facility] and here visiting her mom patient is not keen to stay in the area for long time. No fever, no chills. Related Data Home Medications Medication Instructions Recorded Confirmed multivitamin 1 tab PO DAILY 03/08/22 03/08/22 Previous Rx's Medication Instructions Recorded ondansetron 4 mg disintegrating 4 mg PO Q8H #20 tabs 03/09/22 tablet Allergies Allergy/AdvReac Type Severity Reaction Status Date / Time No Known Allergies Allergy Verified 03/08/22 01:36 Review of Systems Review of Systems All other systems are reviewed and are negative Constitutional: Reports as per HPI and Reports no additional constitutional complaints Eyes: Reports as per HPI and Reports no additional eye complaints Reports system reviewed and no additional complaints, except as documented Cardiovascular: Reports as per HPI and Reports no additional cardiovascular complaints Respiratory: Reports as per HPI and Reports no additional respiratory complaints Gastrointestinal: Reports as per HPI and Reports no additional gastrointestinal complaints Genitourinary: Reports no additional female genitourinary complaints Musculoskeletal: Reports no additional musculoskeletal complaints Skin/Breast: Reports system reviewed and no additional complaints, except as docu Psychiatric: Reports no additional psychiatric complaints Endocrine: Reports no additional endocrine complaints Hematologic/Lymphatic: Reports no additional hematologic/lymphatic complaints Allergic/Immunologic: Reports no additional allergic/immunologic complaints Reports system reviewed and no additional complaints, except as documented and Reports Abnormal speech present [facility] Social History Social History Household Members: Spouse Housing: House Do you presently have visiting nurse or other home services: No Patient Tobacco Use Status: Never used Tobacco Advance Directives: No Patient : No service: No Current occupational status: employed Physical Exam ED Vital Signs: Vital Signs - 24 hr 08/15/22 23:38 08/16/22 02:10 Temperature 98.1 F 98.3 F Pulse Rate 70 58 Respiratory Rate 16 Blood Pressure 110/76 84/41 L Pulse Oximetry 99 97 Oxygen Delivery Method Room Air Room Air BMI result Body Mass Index 24.7 Vital signs have been reviewed as appeared to be correct. Blood pressure normal. Heart rate normal. Respiration rate normal. Temperature normal. Oxygen saturation normal. Appearance: Alert. Oriented X3. No acute distress. Head: Normal external exam. Normocephalic. Atraumatic. No Armstrong signs noted. No raccoon eyes noted Eyes: PERRLA. EOMI. Conjunctiva and sclera normal. Eyelids normal. ENT: TM's Normal. Pharynx normal. Uvula midline. Moist mucous membranes. No trismus noted. No drooling noted. No muffled voice noted. Neck: Normal inspection. Neck supple. FROM. No adenopathy. Thyroid Normal. No meningeal signs. No neck mass noted. CVS: Normal heart rate and rhythm. Heart sound normal. No murmurs noted. Pulses normal throughout. Respiratory: No respiratory distress. Painless inspiration. Breath sounds normal. No wheezes/rales/rhonchi noted. Chest nontender. No accessory muscle usage noted or decreased air movement noted. Abdomen: Soft and nontender. Bowel sounds normal in all 4 quadrants. No distention noted. No organomegaly noted. No visible injury noted. Back: No CVA tenderness. Full range of motion noted. Skin: Skin warm and dry. Normal skin color. Normal skin turgor. No rashes/lesions/lacerations noted. Extremities: No lower extremity edema. Extremities exhibit normal range of motion. Extremities nontender. Neuro: Oriented X 3. Cranial nerve exam: II-XII are grossly intact No motor deficit. No sensory deficit. Reflexes normal. Course Course Course Narrative: 37-year-old female status post cholecystectomy 2 weeks ago return for right upper quadrant tenderness and pain for the last few hours similar to previous presentation, patient last time had a stone impacted in the common bile duct because patient's symptoms improved did not need ERCP. Will admit the patient for further GI evaluation, control pain. Medical Decision Making Differential Diagnosis Differential Diagnoses: The differential diagnosis associated with the presentation includes (Cholelithiasis, choledocholithiasis, cholangitis, pancreatitis,. Post Operative complication.) Admission/Observation Consideration of admission/observation: Escalation of care including admission/observation considered Consult Healthcare Provider Management of the patient was discussed with: Hospitalist Lab Data MDM Lab Attestation statement: I reviewed the patient's lab results. Result Diagrams: 08/15/22 23:51 08/15/22 23:51 Labs: Lab Results 08/15/22 08/15/22 08/15/22 Range/Units 23:51 23:51 23:51 WBC 10.5 (4.8-10.8) X10*3/uL RBC 4.48 D (4.20-5.50) X10*6/uL Hgb 14.3 D (12.0-16.0) g/dl Hct 41.1 D (37.0-47.0) % MCV 91.7 (80.0-98.0) fL MCH 31.9 (27.0-33.0) pg MCHC 34.8 (31.0-35.0) g/dl RDW 12.0 (11.0-16.0) % Plt Count 303 D (160-400) X10*3/uL MPV 10.0 (9.4-12.3) fL Immature Gran % (Auto) 0.6 H (0.0-0.4) % Neut % (Auto) 71.6 (45-73) % Lymph % (Auto) 19.8 L (20-40) % Caswell % (Auto) 7.1 (2-11) % Eos % (Auto) 0.6 (0-4) % Baso % (Auto) 0.3 (0-2) % Lymph # (Auto) 2.1 (1.2-4.9) X10*3/uL Caswell # (Auto) 0.8 (0.1-1.2) X10*3/uL Eos # (Auto) 0.1 (0.0-0.4) X10*3/uL Baso # (Auto) 0.0 (0.0-0.2) X10*3/uL Abs Immat Gran (auto) 0.06 H (0.00-0.03) X10*3/uL Absolute Neuts (auto) 7.5 (2.0-8.3) x10*3/uL Absolute Nucleated RBC 0.000 (0.0-0.012) X10*3/uL Nucleated RBC % (auto) 0.0 (0.0-0.2) /100WBC Sodium 140 (135-145) mmol/L Potassium 3.8 (3.3-5.1) mmol/L Chloride 105 (96-108) mmol/L Carbon Dioxide 26 (22-29) mmol/L Anion Gap 13 (12-20) BUN 12 (9-16) mg/dL Creatinine 0.81 (0.5-1.4) mg/dL Estim Creat Clear Calc 83.6 Estimated GFR > 60 Random Glucose 135 H (60-115) mg/dL Calcium 9.3 D (8.4-10.2) mg/dL Total Bilirubin 0.5 (0.0-1.0) mg/dL AST 231 H (5-31) U/L ALT 110 H (0-31) U/L Alkaline Phosphatase 83 (39-117) U/L Total Protein 6.6 (6.5-8.0) g/dL Albumin 4.3 (3.5-5.0) g/dL Lipase 33 (8-78) U/L Urine Color Urine Appearance Urine pH (5.0-9.0) Ur Specific River (1.005-1.025) Urine Protein (Neg-Trace) mg/dL Urine Glucose (UA) (Negative) mg/dL Urine Ketones (Negative) mg/dL Urine Blood (Negative) Urine Nitrite (Negative) Ur Leukocyte Esterase (Negative) Urine RBC (0-2) /HPF Urine WBC (0-5) /HPF Ur Squamous Epith Cells (0-2) /HPF Urine Bacteria (None Seen) Hyaline Casts (0-2) /LPF Urine Test (NEGATIVE) Influenza Type A (PCR) NEGATIVE (Negative) Influenza Type B (PCR) NEGATIVE (Negative) RSV RNA Qual (PCR) NEGATIVE (Negative) SARS-CoV-2 RNA (RT-PCR) NEGATIVE (Negative) 08/16/22 08/16/22 Range/Units 00:58 00:58 WBC (4.8-10.8) X10*3/uL RBC (4.20-5.50) X10*6/uL Hgb (12.0-16.0) g/dl Hct (37.0-47.0) % MCV (80.0-98.0) fL MCH (27.0-33.0) pg MCHC (31.0-35.0) g/dl RDW (11.0-16.0) % Plt Count (160-400) X10*3/uL MPV (9.4-12.3) fL Immature Gran % (Auto) (0.0-0.4) % Neut % (Auto) (45-73) % Lymph % (Auto) (20-40) % Caswell % (Auto) (2-11) % Eos % (Auto) (0-4) % Baso % (Auto) (0-2) % Lymph # (Auto) (1.2-4.9) X10*3/uL Caswell # (Auto) (0.1-1.2) X10*3/uL Eos # (Auto) (0.0-0.4) X10*3/uL Baso # (Auto) (0.0-0.2) X10*3/uL Abs Immat Gran (auto) (0.00-0.03) X10*3/uL Absolute Neuts (auto) (2.0-8.3) x10*3/uL Absolute Nucleated RBC (0.0-0.012) X10*3/uL Nucleated RBC % (auto) (0.0-0.2) /100WBC Sodium (135-145) mmol/L Potassium (3.3-5.1) mmol/L Chloride (96-108) mmol/L Carbon Dioxide (22-29) mmol/L Anion Gap (12-20) BUN (9-16) mg/dL Creatinine (0.5-1.4) mg/dL Estim Creat Clear Calc Estimated GFR Random Glucose (60-115) mg/dL Calcium (8.4-10.2) mg/dL Total Bilirubin (0.0-1.0) mg/dL AST (5-31) U/L ALT (0-31) U/L Alkaline Phosphatase (39-117) U/L Total Protein (6.5-8.0) g/dL Albumin (3.5-5.0) g/dL Lipase (8-78) U/L Urine Color Yellow Urine Appearance Clear Urine pH >= 9.0 (5.0-9.0) Ur Specific River 1.020 (1.005-1.025) Urine Protein 100 (2+) H (Neg-Trace) mg/dL Urine Glucose (UA) Negative (Negative) mg/dL Urine Ketones 15 (Negative) mg/dL Urine Blood Negative (Negative) Urine Nitrite Negative (Negative) Ur Leukocyte Esterase Negative (Negative) Urine RBC 0-2 (0-2) /HPF Urine WBC 0-5 (0-5) /HPF Ur Squamous Epith Cells 0-2 (0-2) /HPF Urine Bacteria None Seen (None Seen) Hyaline Casts 0-2 (0-2) /LPF Urine Test NEGATIVE (NEGATIVE) Influenza Type A (PCR) (Negative) Influenza Type B (PCR) (Negative) RSV RNA Qual (PCR) (Negative) SARS-CoV-2 RNA (RT-PCR) (Negative) Radiology Impression Discussion of test interpretation with radiology: I have reviewed the radiologist's reading. Medications Administered Discontinued Medications Generic Name Dose Route Start Last Admin Trade Name Linda PRN Reason Stop Dose Admin Hydromorphone HCl 1 mg 08/16/22 00:02 08/16/22 00:21 Hydromorphone Hcl 1 Mg/Ml Syringe IVPUSH 08/16/22 00:03 1 mg ONCE ONE Administration Protocol Sodium Chloride 1,000 mls @ 999 mls/hr 08/16/22 00:02 08/16/22 00:20 Ns IV 08/16/22 01:02 999 mls/hr .Q1H1M ONE Administration Ondansetron HCl 4 mg 08/16/22 00:04 08/16/22 00:21 Ondansetron Hcl 4 Mg/2 Ml Vial IVPUSH 08/16/22 00:05 4 mg ONCE ONE Administration Discharge Plan Discharge Clinical Impression: Choledocholithiasis Patient Disposition: Admitted As Inpatient Prescriptions: No Action multivitamin Tablet 1 tab PO DAILY ondansetron 4 mg tablet,disintegrating 4 mg PO Q8H Qty: 20 0RF
[2022-08-16 00:24] LABS: Alanine Aminotransferase 110 U/L (0-31); Albumin Level 4.3 g/dL (3.5-5.0); Alkaline Phosphatase 83 U/L (39-117); Anion Gap 13 (12-20); Aspartate Amino Transferase 231 U/L (5-31); Bilirubin Total 0.5 mg/dL (0.0-1.0); Blood Urea Nitrogen 12 mg/dL (9-16); Calcium 9.3 mg/dL (8.4-10.2); Carbon Dioxide 26 mmol/L (22-29); Chloride 105 mmol/L (96-108); Creatinine Clr Calc Pharmacy 83.6; Estimated Glomerular Filt Rate > 60; Glucose Random 135 mg/dL (60-115); Lipase 33 U/L (8-78); Potassium 3.8 mmol/L (3.3-5.1); Sodium 140 mmol/L (135-145); Total Protein 6.6 g/dL (6.5-8.0)
[2022-08-16 00:38] LABS: Influenza A PCR NEGATIVE (Negative); Influenza B PCR NEGATIVE (Negative); Resp Syncy Virus RNA Qual PCR NEGATIVE (Negative); SARS COV2 PCR INHOUSE NEGATIVE (Negative)
--- NOTE | 2022-08-16 01:01 | PC.NURSE ---
Pt c/o abdominal pain that radiates to lower back accompanied by n/v that started at about 2200. Pt had recent cholecystectomy and was told she still had cholelithiasis remaining in the bile duct. Alert and oriented. No apparent distress. Zofran administered has resolved n/v.
[2022-08-16 01:10] LABS: Appearance Urine Clear; Color Urine Yellow; Glucose Urine UA Negative (Negative); Leukocyte Esterase Urine Negative (Negative); Nitrite Urine Negative (Negative); PH >= 9.0 (5.0-9.0); UMIC TRIGGER UACC YES; Urine Blood Negative (Negative); Urine Ketones 15 mg/dL (Negative); Urine Protein 100 (2+) mg/dL (Neg-Trace)
[2022-08-16 01:11] LABS: UPreg QC Valid YES; Urine Pregnancy NEGATIVE (NEGATIVE)
[2022-08-16 01:15] LABS: Bacteria Urine None Seen (None Seen); Hyaline Casts Urine 0-2 /LPF (0-2); RBC Urine 0-2 /HPF (0-2); Squamous Epithelial Cell Urine 0-2 /HPF (0-2); WBC Urine 0-5 /HPF (0-5)
[2022-08-16 02:10] VITALS: BP 84/41; PULSE 58; TEMP 36.8; O2SAT 97
[2022-08-16 02:49] VITALS: BP 102/45
--- NOTE | 2022-08-16 04:05 | PM.IMHP ---
History of Present Illness Date of Service: 08/16/22 Chief Complaint: abd pain 37-year-old female with no significant past medical history who was recently evaluated for cholelithiasis/cholecystitis in our hospital, in February, reports that she had cholecystectomy 2 weeks ago which resolved her abdominal pain returns today stating recurrent right upper quadrant abdominal pain radiating to the back, severe 10/10, with decreased oral intake, nausea, no vomiting. Denies diarrhea, no constipation, no urinary symptoms and no lower extremity edema. On arrival to the ED patient hemodynamically stable but did develop hypotension overnight Labs are significant for WBC count of 10.5, hemoglobin of 14.3, hematocrit 41.1, elevated LFTs, UA negative, viral serology negative, chest x-ray shows calcification along the course of the common bile duct, suspicious for choledocholithiasis with no significant biliary ductal dilatation Review of Systems Review of Systems: Yes all other systems are reviewed and are negative [facility] Medical History Choledocholithiasis Family History Other No family history of coronary artery disease Surgical History History of cholecystectomy Social History Household Members: Spouse Housing: House Do you presently have visiting nurse or other home services: No Alcohol intake: current Alcohol intake frequency: holidays/special occasions only Patient Tobacco Use Status: Never used Tobacco Smoked in Last 30 Days: Yes Use of substances other than those prescribed or required for medical reasons: Yes Substance Use Type: Marijuana Substance Use Frequency: Daily Advance Directives: No Patient : No service: No Current occupational status: employed Meds Allergies Allergy/AdvReac Type Severity Reaction Status Date / Time No Known Allergies Allergy Verified 08/16/22 02:51 Home Medications Medication Instructions Recorded Confirmed Last Taken Type multivitamin 1 tab PO DAILY 03/08/22 08/16/22 03/07/22 History Physical Exam Vital Signs and Narrative: Vital Signs: Last Vital Signs Temp 98.3 F 08/16/22 02:10 Pulse 58 08/16/22 02:10 Resp 16 08/15/22 23:38 BP 102/45 L 08/16/22 02:49 Pulse Ox 97 08/16/22 02:10 O2 Del Method 08/16/22 02:10 BMI result Body Mass Index 24.7 Const: General: cooperative and no acute distress Orientation/consciousness: patient oriented x3 Eyes: General: appearance normal, both eyes and all related structures Resp: Effort & Inspection: normal respiratory effort Auscultation: clear to auscultation bilaterally Cardio: Rate: regular rate Rhythm: regular rhythm GI: Other: right upper quadrant tenderness, rebound, and guarding Palpation (GI): Soft to palpation Auscultation: normal bowel sounds Skin: General skin exam: no rashes or lesions noted Neuro: General: patient oriented x3 Cognition (Neuro): normal cognition Extrem: General: Yes normal to inspection and Yes no pedal edema Results Labs CBC and Chem 7: 08/16/22 06:10 08/16/22 06:10 Labs: Laboratory Results - last 24 hr 08/15/22 08/15/22 08/15/22 23:51 23:51 23:51 MCV 91.7 MCH 31.9 MCHC 34.8 RDW 12.0 Plt Count 303 D MPV 10.0 Immature Gran % (Auto) 0.6 H Neut % (Auto) 71.6 Lymph % (Auto) 19.8 L [place] % (Auto) 7.1 Eos % (Auto) 0.6 Baso % (Auto) 0.3 Lymph # (Auto) 2.1 [place] # (Auto) 0.8 Eos # (Auto) 0.1 Baso # (Auto) 0.0 Abs Immat Gran (auto) 0.06 H Absolute Neuts (auto) 7.5 Absolute Nucleated RBC 0.000 Nucleated RBC % (auto) 0.0 Anion Gap 13 Estim Creat Clear Calc 83.6 Estimated GFR > 60 Random Glucose 135 H Calcium 9.3 D Total Bilirubin 0.5 AST 231 H ALT 110 H Alkaline Phosphatase 83 Total Protein 6.6 Albumin 4.3 Lipase 33 Urine Color Urine Appearance Urine pH Ur Specific [place] Urine Protein Urine Glucose (UA) Urine Ketones Urine Blood Urine Nitrite Ur Leukocyte Esterase Urine RBC Urine WBC Ur Squamous Epith Cells Urine Bacteria Hyaline Casts Urine Test Influenza Type A (PCR) NEGATIVE Influenza Type B (PCR) NEGATIVE RSV RNA Qual (PCR) NEGATIVE SARS-CoV-2 RNA (RT-PCR) NEGATIVE 08/16/22 08/16/22 00:58 00:58 MCV MCH MCHC RDW Plt Count MPV Immature Gran % (Auto) Neut % (Auto) Lymph % (Auto) [place] % (Auto) Eos % (Auto) Baso % (Auto) Lymph # (Auto) [place] # (Auto) Eos # (Auto) Baso # (Auto) Abs Immat Gran (auto) Absolute Neuts (auto) Absolute Nucleated RBC Nucleated RBC % (auto) Anion Gap Estim Creat Clear Calc Estimated GFR Random Glucose Calcium Total Bilirubin AST ALT Alkaline Phosphatase Total Protein Albumin Lipase Urine Color Yellow Urine Appearance Clear Urine pH >= 9.0 Ur Specific [place] 1.020 Urine Protein 100 (2+) H Urine Glucose (UA) Negative Urine Ketones 15 Urine Blood Negative Urine Nitrite Negative Ur Leukocyte Esterase Negative Urine RBC 0-2 Urine WBC 0-5 Ur Squamous Epith Cells 0-2 Urine Bacteria None Seen Hyaline Casts 0-2 Urine Test NEGATIVE Influenza Type A (PCR) Influenza Type B (PCR) RSV RNA Qual (PCR) SARS-CoV-2 RNA (RT-PCR) Imaging Radiologist's Impressions: Impressions Abdomen/Pelvis CT 08/16/22 01:40 IMPRESSION: 1. Subtle calcification along the course of the common bile duct, suspicious for choledocholithiasis. No significant biliary ductal dilatation. 2. Trace nonspecific pelvic free fluid, which may be physiologic. Assessment and Plan (1) Choledocholithiasis: Status: Acute (2) Transaminitis: Status: Acute (3) Abdominal pain: Status: Acute Plan 37-year-old female with recent cholecystectomy 2 weeks ago presents the hospital with complaints of right upper quadrant abdominal pain found to have possible choledocholithiasis # acute abdominal pain - likely secondary to choledocholithiasis - will obtain MRCP - GI consult for possible ERCP - pain control - IVF # transaminitis - likely secondary to above - IV fluid - MRCP, ERCP, GI consult - follow CMP DVT prophylaxis: SCDs /early ambulation Time Spent With Patient Time: Total time managing care of this patient today ____ minutes. Quality Stroke Does the patient have a stroke diagnosis?: No VTE Prior VTE?: No VTE Risk Level:: Medical - moderate - high VTE Device Contraindication: Treatment Not Indicated VTE Drug Contraindication: N/A - Med Ordered
[2022-08-16 05:56] VITALS: BP 112/59; PULSE 55; TEMP 36.9; O2SAT 95
--- NOTE | 2022-08-16 06:15 | PC.NURSE ---
Pt resting quietly while watching tv. No apparent distress.
[2022-08-16 06:20] LABS: MANUAL DIFF FLAG NO
[2022-08-16 06:37] LABS: Anion Gap 10 (12-20); Basophils Percent Auto 0.1 % (0-2); Blood Urea Nitrogen 11 mg/dL (9-16); Calcium 8.5 mg/dL (8.4-10.2); Carbon Dioxide 23 mmol/L (22-29); Chloride 110 mmol/L (96-108); Creatinine Clr Calc Pharmacy 99.6; Eosinophils Percent Auto 0.1 % (0-4); Estimated Glomerular Filt Rate > 60; Glucose Random 107 mg/dL (60-115); Hematocrit 37.7 % (37.0-47.0); Hemoglobin 13.2 g/dl (12.0-16.0); Imm Gran Abs Auto 0.05 X10*3/uL (0.00-0.03); Imm Gran Pct Auto 0.5 % (0.0-0.4); Lymphocytes Percent Auto 8.9 % (20-40); Mean Corpuscular Hemoglobin 32.1 pg (27.0-33.0); Mean Corpuscular Volume 91.7 fL (80.0-98.0); Mean Platelet Volume 10.5 fL (9.4-12.3); Monocytes Absolute Auto 0.5 X10*3/uL (0.1-1.2); Monocytes Percent Auto 4.3 % (2-11); Neutrophils Absolute Auto 9.1 x10*3/uL (2.0-8.3); Neutrophils Percent Auto 86.1 % (45-73); Platelet Count 266 X10*3/uL (160-400); Potassium 4.3 mmol/L (3.3-5.1); Red Blood Count 4.11 X10*6/uL (4.20-5.50); Red Cell Distribution Width 11.9 % (11.0-16.0); Sodium 139 mmol/L (135-145); White Blood Count 10.6 X10*3/uL (4.8-10.8)
[2022-08-16 07:25] VITALS: BP 94/58; PULSE 52; RESP 14; TEMP 36.9; O2SAT 97
--- NOTE | 2022-08-16 09:16 | PHA.MEDREC ---
Pharmacy Consult ? Medication Reconciliation Pharmacy has completed the medication reconciliation. Med rec done by overnight nurse. Confirmed with patient that there are no home meds other than daily multivitamin.
[2022-08-16 09:51] LABS: Alanine Aminotransferase 220 U/L (0-31); Albumin Level 3.6 g/dL (3.5-5.0); Alkaline Phosphatase 85 U/L (39-117); Anion Gap 9 (12-20); Aspartate Amino Transferase 240 U/L (5-31); Blood Urea Nitrogen 11 mg/dL (9-16); Calcium 8.5 mg/dL (8.4-10.2); Carbon Dioxide 26 mmol/L (22-29); Chloride 109 mmol/L (96-108); Creatinine Clr Calc Pharmacy 90.3; Estimated Glomerular Filt Rate > 60; Glucose Random 84 mg/dL (60-115); Potassium 4.2 mmol/L (3.3-5.1); Sodium 140 mmol/L (135-145); Total Protein 5.6 g/dL (6.5-8.0)
--- NOTE | 2022-08-16 11:49 | HO.PM.IMPN ---
Subjective Subjective Date of Service: 08/16/22 Interval History: Seen in follow up for RUQ pain/choledocolithiasis Interval History: Pt requesting clear liquids and tolerated. Denies any ongoing abdominal pain, n/v. Requesting to go home. AST/LFT increased to 240/220 (last night 231/110). Total Bili increased to 1.0 (was 0.5 last night). Review of Systems General: No fevers, malaise, unintentional weight loss Cardiovascular: No chest pain, palpitations, or leg edema Respiratory: No shortness of breath, wheezing, cough GI: No abdominal pain, nausea, vomiting, diarrhea : No dysuria, hematuria, increased urinary frequency MSK: No myalgia, back pain Neuro: No headaches, weakness, paresthesias Skin: No rashes or lesions Physical Exam Vital Signs: Vital Signs: Last Vital Signs Temp 98.4 F 08/16/22 07:25 Pulse 52 08/16/22 07:25 Resp 14 08/16/22 07:25 BP 94/58 L 08/16/22 07:25 Pulse Ox 97 08/16/22 07:25 O2 Del Method 08/16/22 07:25 BMI result Body Mass Index 24.7 Constitutional - Awake and Alert, No apparent distress Eyes - PERRLA, EOMI Cardiovascular - S1S2, RRR, No edema Respiratory - Normal lung expansion, Normal respiratory effort, No respiratory distress, CTA bilaterally Gastrointestinal - NT / ND; +BS; No rebound or guarding, negative coleman sign Extremities - no calf tenderness bilaterally, no swelling Skin - Warm/Dry Neurological - Alert & oriented x3 Psychological - Appropriate affect Objective Data Active Medications Acetaminophen (Acetaminophen 325 Mg Tablet) 650 mg PO Q6H PRN PRN Reason: Pain, Mild (Pain Scale 1-3) Docusate Sodium (Docusate Sodium 100 Mg Capsule) 100 mg PO DAILY PRN PRN Reason: Constipation Enoxaparin Sodium (Enoxaparin Sodium 40 Mg/0.4 Ml Syringe) 40 mg SUBCUT Q24H [facility] Last Admin: 08/16/22 04:46 Dose: 40 mg Documented By: SHAZIA Multivitamins/Vitamin C (Multivitamin Tablet) 1 tab PO DAILY [facility] Last Admin: 08/16/22 09:16 Dose: 1 tab Documented By: AGUEDA Ondansetron HCl (Ondansetron Hcl 4 Mg/2 Ml Vial) 4 mg IVPUSH Q8H PRN PRN Reason: Nausea and Vomiting Oxycodone HCl (Oxycodone Hcl Immed Release 5 Mg Tablet) 5 mg PO Q6H PRN PRN Reason: Pain, Severe (Pain Scale 7-10) Sodium Chloride (0.9 % Sodium Chloride Flush 3 Ml Syringe) 3 ml IVFLUSH QSHIFT [facility] Last Admin: 08/16/22 09:33 Dose: Not Given Documented By: AGUEDA Non-Admin Reason: IV Running Labs CBC & Chem 7: 08/16/22 06:10 08/16/22 09:05 Labs: Laboratory Results - last 24 hr 08/15/22 08/15/22 08/15/22 23:51 23:51 23:51 MCV 91.7 MCH 31.9 MCHC 34.8 RDW 12.0 Plt Count 303 D MPV 10.0 Immature Gran % (Auto) 0.6 H Neut % (Auto) 71.6 Lymph % (Auto) 19.8 L [place] % (Auto) 7.1 Eos % (Auto) 0.6 Baso % (Auto) 0.3 Lymph # (Auto) 2.1 [place] # (Auto) 0.8 Eos # (Auto) 0.1 Baso # (Auto) 0.0 Abs Immat Gran (auto) 0.06 H Absolute Neuts (auto) 7.5 Absolute Nucleated RBC 0.000 Nucleated RBC % (auto) 0.0 Anion Gap 13 Estim Creat Clear Calc 83.6 Estimated GFR > 60 Random Glucose 135 H Calcium 9.3 D Total Bilirubin 0.5 AST 231 H ALT 110 H Alkaline Phosphatase 83 Total Protein 6.6 Albumin 4.3 Lipase 33 Urine Color Urine Appearance Urine pH Ur Specific [place] Urine Protein Urine Glucose (UA) Urine Ketones Urine Blood Urine Nitrite Ur Leukocyte Esterase Urine RBC Urine WBC Ur Squamous Epith Cells Urine Bacteria Hyaline Casts Urine Test Influenza Type A (PCR) NEGATIVE Influenza Type B (PCR) NEGATIVE RSV RNA Qual (PCR) NEGATIVE SARS-CoV-2 RNA (RT-PCR) NEGATIVE 08/16/22 08/16/22 08/16/22 00:58 00:58 06:10 MCV 91.7 MCH 32.1 MCHC 35.0 RDW 11.9 Plt Count 266 MPV 10.5 Immature Gran % (Auto) 0.5 H Neut % (Auto) 86.1 H Lymph % (Auto) 8.9 L [place] % (Auto) 4.3 Eos % (Auto) 0.1 Baso % (Auto) 0.1 Lymph # (Auto) 1.0 L [place] # (Auto) 0.5 Eos # (Auto) 0.0 Baso # (Auto) 0.0 Abs Immat Gran (auto) 0.05 H Absolute Neuts (auto) 9.1 H Absolute Nucleated RBC 0.000 Nucleated RBC % (auto) 0.0 Anion Gap Estim Creat Clear Calc Estimated GFR Random Glucose Calcium Total Bilirubin AST ALT Alkaline Phosphatase Total Protein Albumin Lipase Urine Color Yellow Urine Appearance Clear Urine pH >= 9.0 Ur Specific [place] 1.020 Urine Protein 100 (2+) H Urine Glucose (UA) Negative Urine Ketones 15 Urine Blood Negative Urine Nitrite Negative Ur Leukocyte Esterase Negative Urine RBC 0-2 Urine WBC 0-5 Ur Squamous Epith Cells 0-2 Urine Bacteria None Seen Hyaline Casts 0-2 Urine Test NEGATIVE Influenza Type A (PCR) Influenza Type B (PCR) RSV RNA Qual (PCR) SARS-CoV-2 RNA (RT-PCR) 08/16/22 08/16/22 06:10 09:05 MCV MCH MCHC RDW Plt Count MPV Immature Gran % (Auto) Neut % (Auto) Lymph % (Auto) [place] % (Auto) Eos % (Auto) Baso % (Auto) Lymph # (Auto) [place] # (Auto) Eos # (Auto) Baso # (Auto) Abs Immat Gran (auto) Absolute Neuts (auto) Absolute Nucleated RBC Nucleated RBC % (auto) Anion Gap 10 L 9 L Estim Creat Clear Calc 99.6 90.3 Estimated GFR > 60 > 60 Random Glucose 107 84 Calcium 8.5 D 8.5 Total Bilirubin 1.0 AST 240 H ALT 220 H Alkaline Phosphatase 85 Total Protein 5.6 L Albumin 3.6 Lipase Urine Color Urine Appearance Urine pH Ur Specific [place] Urine Protein Urine Glucose (UA) Urine Ketones Urine Blood Urine Nitrite Ur Leukocyte Esterase Urine RBC Urine WBC Ur Squamous Epith Cells Urine Bacteria Hyaline Casts Urine Test Influenza Type A (PCR) Influenza Type B (PCR) RSV RNA Qual (PCR) SARS-CoV-2 RNA (RT-PCR) Assessment and Plan (1) Choledocholithiasis: Status: Acute (2) Transaminitis: Status: Acute Plan ?37-year-old female with recent cholecystectomy 2 weeks ago at [facility] (GI: Dr. Coto) presents the hospital with complaints of right upper quadrant abdominal pain found to have possible choledocholithiasis #? acute abdominal pain- resolved -? likely secondary to choledocholithiasis -? MRCP pending -? GI consult for possible ERCP -? pain control -? IVF #? transaminitis- worsening - AST 240, ALT 220, Total bili 1.0 -? likely secondary to above -? IV fluid -? MRCP, ERCP, GI consult -? follow CMP Pt wishes to go home. She is completely asymptomatic. Discussed with Dr. Singh. Given significant increase in LFTs, should observe. Will advance to low fat diet and await GI input. ?DVT prophylaxis: SCDs /early? ambulation Pt requires ongoing inpt stay for management of acute choledocolithiasis with worsening transaminitis at risk for complication given cholecystectomy 2 weeks ago requiring close monitoring of LFTs, pain management, and MRCP with possible ERCP pending expert consultation. Quality Stroke Does the patient have a stroke diagnosis?: No VTE Prior VTE?: No VTE Risk Level:: Medical - moderate - high VTE Device Contraindication: Treatment Not Indicated VTE Drug Contraindication: N/A - Med Ordered
--- NOTE | 2022-08-16 12:42 | PM.GICN ---
History of Present Illness Data of Consult Service Date: 08/16/22 Requesting physician: Keara Taylor Primary Care Provider: Nonstaff Physician HPI Reason for consult: Elevated LFTs This is a 37-year-old female with past medical history of recent cholecystectomy 2 weeks ago ([place]), who presented to the hospital for abdominal pain, nausea and vomiting and was found to have elevated LFTs with question of CBD stones. History was ranged from the patient, who states that after cholecystectomy, she was told by her surgeon that there may be diminutive stones in her duct that they were able to see during the surgery (from her description sounds like she had an intraoperative cholangiogram). She was told she would be getting a phone call to set up a follow-up MRI versus ERCP, but has not heard back yet. She lives in [facility] [facility], and was visiting her mother for the holidays, when last night she had sudden onset of abdominal pain that felt exactly like he did when she had biliary colic back in February. Associated with nausea, vomiting and chills. She therefore presented to the hospital. On initial eval in the emergency room, she was noted to be widely stable. Labs were significant for normal white count, but with neutrophilic shift. Chem 7 pertinent for elevated transaminases that have bumped up further this morning. Bilirubin has also increased from 0.5-1.0. She had a CT abdomen and pelvis without contrast, that did not show any biliary dilatation, but is suspicious for choledocholithiasis. Review of Systems Review of Systems: Yes all other systems are reviewed and are negative PMFSH Past Medical History Medical History Choledocholithiasis Family History Family History Other No family history of coronary artery disease Surgical History Surgical History History of cholecystectomy Social History Social History Household Members: Spouse Housing: House Do you presently have visiting nurse or other home services: No Alcohol intake: current Alcohol intake frequency: holidays/special occasions only Patient Tobacco Use Status: Never used Tobacco Smoked in Last 30 Days: Yes Use of substances other than those prescribed or required for medical reasons: Yes Substance Use Type: Marijuana Substance Use Frequency: Daily Advance Directives: No Patient : No service: No Current occupational status: employed Meds Allergies Allergy/AdvReac Type Severity Reaction Status Date / Time No Known Allergies Allergy Verified 08/16/22 02:51 Active Medications: Current Medications Acetaminophen (Acetaminophen 325 Mg Tablet) 650 mg PO Q6H PRN PRN Reason: Pain, Mild (Pain Scale 1-3) Docusate Sodium (Docusate Sodium 100 Mg Capsule) 100 mg PO DAILY PRN PRN Reason: Constipation Enoxaparin Sodium (Enoxaparin Sodium 40 Mg/0.4 Ml Syringe) 40 mg SUBCUT Q24H [facility] Last Admin: 08/16/22 04:46 Dose: 40 mg Multivitamins/Vitamin C (Multivitamin Tablet) 1 tab PO DAILY [facility] Last Admin: 08/16/22 09:16 Dose: 1 tab Ondansetron HCl (Ondansetron Hcl 4 Mg/2 Ml Vial) 4 mg IVPUSH Q8H PRN PRN Reason: Nausea and Vomiting Oxycodone HCl (Oxycodone Hcl Immed Release 5 Mg Tablet) 5 mg PO Q6H PRN PRN Reason: Pain, Severe (Pain Scale 7-10) Sodium Chloride (0.9 % Sodium Chloride Flush 3 Ml Syringe) 3 ml IVFLUSH QSHIFT [facility] Last Admin: 08/16/22 09:33 Dose: Not Given Home Medications Medication Instructions Recorded Confirmed Last Taken Type multivitamin 1 tab PO DAILY 03/08/22 08/16/22 03/07/22 History Physical Exam Vital Signs: Vital Signs: Last Vital Signs Temp 98.4 F 08/16/22 07:25 Pulse 52 08/16/22 07:25 Resp 14 08/16/22 07:25 BP 94/58 L 08/16/22 07:25 Pulse Ox 97 08/16/22 07:25 O2 Del Method 08/16/22 07:25 BMI result Body Mass Index 24.7 Gen appear: No acute distress, well nourished HEENT: no icterus, no cervical lymphadenopathy Chest: No overt resp distress CVS: S1/S2, regular Abd: soft, nontender, nondistended Psych: Stable affect, answering questions appropriately Neuro: A/Ox3 noted to move all extremities spontaneously Ext: no peripheral edema Results Labs CBC & Chem 7: 08/16/22 06:10 08/16/22 09:05 Labs: Short CBC 08/15/22 08/16/22 Range/Units 23:51 06:10 WBC 10.5 10.6 (4.8-10.8) X10*3/uL Hgb 14.3 D 13.2 (12.0-16.0) g/dl Hct 41.1 D 37.7 (37.0-47.0) % Plt Count 303 D 266 (160-400) X10*3/uL BMP 08/15/22 08/16/22 08/16/22 23:51 06:10 09:05 Sodium 140 139 140 Potassium 3.8 4.3 4.2 Chloride 105 110 H 109 H Carbon Dioxide 26 23 26 BUN 12 11 11 Creatinine 0.81 0.68 0.75 Calcium 9.3 D 8.5 D 8.5 Liver Function 08/15/22 08/16/22 Range/Units 23:51 09:05 Total Bilirubin 0.5 1.0 (0.0-1.0) mg/dL AST 231 H 240 H (5-31) U/L ALT 110 H 220 H (0-31) U/L Alkaline Phosphatase 83 85 (39-117) U/L Albumin 4.3 3.6 (3.5-5.0) g/dL Urine 08/16/22 Range/Units 00:58 Urine Color Yellow Urine Appearance Clear Urine pH >= 9.0 (5.0-9.0) Ur Specific [place] 1.020 (1.005-1.025) Urine Protein 100 (2+) H (Neg-Trace) mg/dL Urine Glucose (UA) Negative (Negative) mg/dL Assessment and Plan (1) Choledocholithiasis: Status: Acute (2) Abdominal pain: Status: Acute (3) Elevated LFTs: Status: Acute Plan Likely has diminutive CBD stones, given her report of stones in duct seen intraoperatively and current clinical presentation. No biloma noted on CT. SOD type II also considered as a ddx. Recommend MRCP for further characterization If it does confirm choledocholithiasis, should ideally get the ERCP during this admission. Patient understandably is not thrilled to stay in the hospital during [place], but understands the risk of complications including pancreatitis, cholangitis, etc if she does have CBD stones that are left untreated and is willing to stay. Okay to advance to low fat diet Daily LFTs Thank you for allowing me to participate in her care. Please do not hesitate to contact for any questions or concerns. Time Spent With Patient Time: Total time managing care of this patient today ____ minutes. Procedures Date of Service Date of Service: 08/16/22
--- NOTE | 2022-08-16 14:58 | MHC.CM.PN ---
Addendum entered by Rosi Menezes 08/16/22 15:01: PT MEDICALLY CLEARED FOR DC HOME, SPOUSE TO TRANSPORT Original Note: CM MET WITH PT AND SPOUSE AT BEDSIDE. LIVES ON THE [facility] [place], VISITING FAMILY FOR THE HOLIDAY. INDEPENDENT AT BASELINE. NO SERVICES OR DME. NO HCP, DECLINES.+COVID VAX X3 PCP NANCY AYALA DP: HOME, NO SERVICES, SPOUSE WILL TRANSPORT
--- NOTE | 2022-08-16 17:15 | PM.DS ---
DS: Providers Provider Date of Service: 08/16/22 Date of admission: 08/16/22 04:02 Date of discharge: 08/16/22 Primary care physician: Nonstaff Physician Admitting clinician: Keara Taylor Attending physician on admission: Keara Taylor Consults: 08/16/22 04:01 Consult to Gastroenterology Routine Consulting Provider: Diane Singh Reason for consultation: mrcp/ercp Has provider been notified: No Attending physician on discharge: Mustapha Davis Discharging clinician: Rosalba Funez DS: Diagnosis Discharge Diagnosis (1) Choledocholithiasis: Status: Acute (2) Transaminitis: Status: Acute DS: Summary Hospital Course Hospital Course: HPI on admission by Dr. Taylor 08/16: Chief Complaint: abd pain ?37-year-old female with no significant past medical history who was recently evaluated for cholelithiasis/cholecystitis in our hospital, in February, reports that she had cholecystectomy 2 weeks ago which resolved her abdominal pain returns today stating recurrent right upper quadrant abdominal pain radiating to the back, severe 10/10, with decreased oral intake, nausea, no vomiting.? Denies diarrhea, no constipation, no urinary symptoms and no lower extremity edema.? On arrival to the ED patient hemodynamically stable but did develop hypotension overnight Labs are significant for? WBC count of 10.5, hemoglobin of 14.3, hematocrit 41.1, elevated LFTs,? UA negative, viral serology negative, ?chest x-ray shows calcification along the course of the common bile duct, suspicious for choledocholithiasis with no significant biliary ductal dilatation Hospital Course: Pt admitted overnight for suspected choledocolithiasis with tranaminitis s/p cholecystectomy 2 weeks ago at [facility] where she follows routinely with GI. Pt seen and examined this morning with at bedside. Pt reports complete resolution of abdominal pain, nausea, vomiting. Requested advancement of diet to clear liquids and then regular low fat diet without recurrence of symptoms. LFTs increased this morning with AST 240, ALT 220, Total bili 1.0 (last night AST 231, ALT 110, Total bili 1.0. Plan for MRCP and possible ERCP pending GI evaluation. Pt requests discharge. Notified GI who saw patient recommending she remain for MRCP and possible ERCP given history diminutive CBD stones and educated of risk of possible pancreatitis or cholangitis if CBD stone obstructed. Pt reeducated on risks and patient requests AMA discharge. She is alert and oriented x4 and AMA form signed witnessed by ED RN. She is given copy of CT images on disc to bring to her specialist whom she is advised to follow up with. Pt advised to return to the hospital if symptoms recur. Status at Discharge Functional status at discharge: independent ambulation Overall status at discharge: patient is back to baseline Time Spent with Patient Time attestation: Total time managing care of this patient today ____ minutes. Discharge coordination time: Greater than 30 minutes Quality: Safe Use of Opioids Does Pt have an Active Cancer Diagnosis on the Problem List?: No Quality: Stroke Does the patient have a stroke diagnosis?: No Physical Exam Vital Signs: Vital Signs: Last Vital Signs Temp 98.4 F 08/16/22 07:25 Pulse 52 08/16/22 07:25 Resp 14 08/16/22 07:25 BP 94/58 L 08/16/22 07:25 Pulse Ox 97 08/16/22 07:25 O2 Del Method 08/16/22 07:25 BMI result Body Mass Index 24.7 Constitutional - Awake and Alert, No apparent distress Eyes - PERRLA, EOMI Cardiovascular - S1S2, RRR, No edema Respiratory - Normal lung expansion, Normal respiratory effort, No respiratory distress, CTA bilaterally Gastrointestinal - NT / ND; +BS; No rebound or guarding Extremities - no calf tenderness bilaterally, no swelling Skin - Warm/Dry Neurological - Alert & oriented x3 Psychological - Appropriate affect DS: Data Data Completed and Pending Labs on day of discharge: Laboratory Results - last 24 hr 08/15/22 08/15/22 08/15/22 23:51 23:51 23:51 WBC 10.5 RBC 4.48 D Hgb 14.3 D Hct 41.1 D MCV 91.7 MCH 31.9 MCHC 34.8 RDW 12.0 Plt Count 303 D MPV 10.0 Immature Gran % (Auto) 0.6 H Neut % (Auto) 71.6 Lymph % (Auto) 19.8 L [place] % (Auto) 7.1 Eos % (Auto) 0.6 Baso % (Auto) 0.3 Lymph # (Auto) 2.1 [place] # (Auto) 0.8 Eos # (Auto) 0.1 Baso # (Auto) 0.0 Abs Immat Gran (auto) 0.06 H Absolute Neuts (auto) 7.5 Absolute Nucleated RBC 0.000 Nucleated RBC % (auto) 0.0 Sodium 140 Potassium 3.8 Chloride 105 Carbon Dioxide 26 Anion Gap 13 BUN 12 Creatinine 0.81 Estim Creat Clear Calc 83.6 Estimated GFR > 60 Random Glucose 135 H Calcium 9.3 D Total Bilirubin 0.5 AST 231 H ALT 110 H Alkaline Phosphatase 83 Total Protein 6.6 Albumin 4.3 Lipase 33 Urine Color Urine Appearance Urine pH Ur Specific Daisy Urine Protein Urine Glucose (UA) Urine Ketones Urine Blood Urine Nitrite Ur Leukocyte Esterase Urine RBC Urine WBC Ur Squamous Epith Cells Urine Bacteria Hyaline Casts Urine Test Influenza Type A (PCR) NEGATIVE Influenza Type B (PCR) NEGATIVE RSV RNA Qual (PCR) NEGATIVE SARS-CoV-2 RNA (RT-PCR) NEGATIVE 08/16/22 08/16/22 08/16/22 00:58 00:58 06:10 WBC 10.6 RBC 4.11 L Hgb 13.2 Hct 37.7 MCV 91.7 MCH 32.1 MCHC 35.0 RDW 11.9 Plt Count 266 MPV 10.5 Immature Gran % (Auto) 0.5 H Neut % (Auto) 86.1 H Lymph % (Auto) 8.9 L [place] % (Auto) 4.3 Eos % (Auto) 0.1 Baso % (Auto) 0.1 Lymph # (Auto) 1.0 L [place] # (Auto) 0.5 Eos # (Auto) 0.0 Baso # (Auto) 0.0 Abs Immat Gran (auto) 0.05 H Absolute Neuts (auto) 9.1 H Absolute Nucleated RBC 0.000 Nucleated RBC % (auto) 0.0 Sodium Potassium Chloride Carbon Dioxide Anion Gap BUN Creatinine Estim Creat Clear Calc Estimated GFR Random Glucose Calcium Total Bilirubin AST ALT Alkaline Phosphatase Total Protein Albumin Lipase Urine Color Yellow Urine Appearance Clear Urine pH >= 9.0 Ur Specific Daisy 1.020 Urine Protein 100 (2+) H Urine Glucose (UA) Negative Urine Ketones 15 Urine Blood Negative Urine Nitrite Negative Ur Leukocyte Esterase Negative Urine RBC 0-2 Urine WBC 0-5 Ur Squamous Epith Cells 0-2 Urine Bacteria None Seen Hyaline Casts 0-2 Urine Test NEGATIVE Influenza Type A (PCR) Influenza Type B (PCR) RSV RNA Qual (PCR) SARS-CoV-2 RNA (RT-PCR) 08/16/22 08/16/22 06:10 09:05 WBC RBC Hgb Hct MCV MCH MCHC RDW Plt Count MPV Immature Gran % (Auto) Neut % (Auto) Lymph % (Auto) [place] % (Auto) Eos % (Auto) Baso % (Auto) Lymph # (Auto) [place] # (Auto) Eos # (Auto) Baso # (Auto) Abs Immat Gran (auto) Absolute Neuts (auto) Absolute Nucleated RBC Nucleated RBC % (auto) Sodium 139 140 Potassium 4.3 4.2 Chloride 110 H 109 H Carbon Dioxide 23 26 Anion Gap 10 L 9 L BUN 11 11 Creatinine 0.68 0.75 Estim Creat Clear Calc 99.6 90.3 Estimated GFR > 60 > 60 Random Glucose 107 84 Calcium 8.5 D 8.5 Total Bilirubin 1.0 AST 240 H ALT 220 H Alkaline Phosphatase 85 Total Protein 5.6 L Albumin 3.6 Lipase Urine Color Urine Appearance Urine pH Ur Specific Daisy Urine Protein Urine Glucose (UA) Urine Ketones Urine Blood Urine Nitrite Ur Leukocyte Esterase Urine RBC Urine WBC Ur Squamous Epith Cells Urine Bacteria Hyaline Casts Urine Test Influenza Type A (PCR) Influenza Type B (PCR) RSV RNA Qual (PCR) SARS-CoV-2 RNA (RT-PCR) Discharge Plan Discharge Anticipated Discharge Date/Time: 08/16/22 14:47 Patient Disposition: Home, Self-Care Discharge Diagnosis: choledocolithiasis Referrals: Physician,Nonstaff [Primary Care Provider] - 1 Week Discharge Medications: Continued multivitamin Tablet 1 tab PO DAILY Discharge Orders: Discharge Order (Routine); Ordered 08/16/22 Ordered By: Rosalba Funez Diet: low fat diet Activity on Discharge: As tolerated Stand Alone Forms: Patient Portal Discharge page Care Plan Goals: Follow up with gastroenterology for further management of residual stones in common bile duct Health Concerns: Choledocolithiasis Plan of Treatment: Choledocolithiasis -CT scan abd/pelvis showed possible stone in common bile duct, called choledocolithiasis. Based on your history, it seems likely there are multiple stones in the common bile duct following your cholecystectomy -These stones cause intermittent sometimes severe pain, nausea, vomiting and could potentially result in pancreatitis or cholangitis both of which are very serious in nature and can result in sepsis or . -Your LFTs continue to elevate, likely related to the stones. -You should return immediately for any recurrence of pain and otherwise follow up with your specialist as stated. Bring a copy of your imaging for the provider. Assessment: See above Discharge Date/Time: 08/16/22 15:12
== END 2022-08-16 15:12 | disposition home or self-care (01) | DRG 252 ==
LOC: HO.ED 08-16 02:47 → HO.EDOVER 08-16 04:09
PROVIDERS: Admitting Provider Internal Medicine; Emergency Provider Emergency Medicine; Visit Provider Physician Assistant
DX: K91.86 Retained cholelithiasis following cholecystectomy (principal); Z20.822 Contact with and (suspected) exposure to COVID-19
CPT/HCPCS: 0241U; 36415; 74176; 80048; 80053; 81001; 81025; 83690; 85025; 96361; 96374; 96375; 99284; 99285; J1170; J1650; J2405